=== PATIENT | female | born 1955 | race Caucasian/White ===

== ENCOUNTER 2017-09-24 00:42 | Inpatient (IN) | payer OTHER ==
[2017-09-24] MEDS ORDERED: NITROGLYCERIN SL TABS 0.4 MG TAB SUBLINGUAL PRN ×2 (02:06→09:45)
--- NOTE | 2017-09-24 02:11 | ED ---
SOB HPI - General Chief Complaint: Shortness of Breath Stated Complaint: Dr Martinez Time Seen by Provider: 09/24/17 01:08 Source: patient Mode of arrival: ambulatory Limitations: no limitations - History of Present Illness Initial Comments: this patient is a 62-year-old woman transferred here to have further workup for suspected angina. The patient had gone to outside hospital with complaint that she was having episodes of shortness of breath that were coming by nausea and breaking into a sweat. She states that these were often brought on by exertion like walking short distances from her home. She went to the outside hospital and T inversions were noted on her EKG, compared with the previous MD Complaint: shortness of breath -: week(s) Consistency: intermittent Improves With: oxygen Worsens With: exertion Associated Symptoms: diaphoresis, nausea/vomiting Treatments Prior to Arrival: oxygen, aspirin - Related Data Home Medications Medication Instructions Recorded Confirmed Aspirin [Adult Low Dose Aspirin EC] 81 mg PO DAILY 09/24/17 09/24/17 Carvedilol [Coreg] 6.25 mg PO BID 09/24/17 09/24/17 Diazepam [Valium] 5 mg PO QID PRN 09/24/17 09/24/17 Levothyroxine Sodium [Synthroid] 112 mcg PO DAILY 09/24/17 09/24/17 Lisinopril [Zestril] 5 mg PO DAILY 09/24/17 09/24/17 Simvastatin [Zocor] 20 mg PO HS 09/24/17 09/24/17 metFORMIN HCL [Glucophage] 500 mg PO BID 09/24/17 09/24/17 Allergies Allergy/AdvReac Type Severity Reaction Status Date / Time lincomycin Allergy Swelling Verified 09/24/17 05:14 nickel Allergy Swelling Verified 09/24/17 05:14 Review of Systems ROS Statement: Those systems with pertinent positive or pertinent negative responses have been documented in the HPI. ROS Other: All systems not noted in ROS Statement are negative. Constitutional: Denies: fever, chills, weakness Respiratory: Reports: as per HPI, dyspnea. Denies: cough, wheezes, hemoptysis Cardiovascular: Reports: as per HPI, dyspnea on exertion. Denies: chest pain, palpitations, orthopnea, edema, syncope Gastrointestinal: Reports: as per HPI, nausea. Denies: abdominal pain, vomiting Genitourinary: Denies: dysuria, hematuria Musculoskeletal: Denies: back pain Skin: Denies: rash Neurological: Denies: headache, weakness, numbness Hematological/Lymphatic: Denies: easy bleeding Past Medical History Past Medical History: Coronary Artery Disease (CAD), Diabetes Mellitus, Hyperlipidemia, Hypertension, Seizure Disorder History of Any Multi-Drug Resistant Organisms: None Reported Past Surgical History: Back Surgery, Heart Catheterization Past Psychological History: No Psychological Hx Reported Smoking Status: Former smoker Past Alcohol Use History: None Reported Past Drug Use History: Marijuana - Past Family History Father Family Medical History: Coronary Artery Disease (CAD) Additional Family Medical History / Comment(s): required CABG at age 42 Mother Family Medical History: Diabetes Mellitus General Exam Limitations: no limitations General appearance: alert, in no apparent distress Head exam: Present: atraumatic, normocephalic Eye exam: Present: normal appearance. Absent: scleral icterus, conjunctival injection ENT exam: Present: mucous membranes dry Neck exam: Present: normal inspection, full ROM Respiratory exam: Present: normal lung sounds bilaterally. Absent: respiratory distress, wheezes, rales, rhonchi, stridor, chest wall tenderness, accessory muscle use, decreased breath sounds Cardiovascular Exam: Present: regular rate, normal rhythm, normal heart sounds. Absent: systolic murmur, diastolic murmur, rubs, gallop GI/Abdominal exam: Present: soft. Absent: distended, tenderness, guarding, rebound Extremities exam: Present: normal inspection, normal capillary refill. Absent: pedal edema, calf tenderness Back exam: Present: normal inspection. Absent: CVA tenderness (R), CVA tenderness (L) Neurological exam: Present: alert Skin exam: Present: warm, dry, intact, normal color. Absent: rash Course Vital Signs 09/24/17 09/24/17 09/24/17 00:46 01:50 02:30 Temperature 98 F 97.4 F L Pulse Rate 68 58 L 58 L Respiratory 18 18 18 Rate Blood Pressure 126/57 110/57 133/62 O2 Sat by Pulse 97 100 99 Oximetry Medical Decision Making - Medical Decision Making patient is a 62-year-old woman having episodes concerning for angina. She also does have T inversions on an EKG comparison with previous. She is asymptomatic here, and she has had 2 negative troponins. patient is admitted. did discuss case with the on-call nuisance wildlife specialist, and recommendations incorporated. - Lab Data Lab Results 09/24/17 Range/Units 01:20 Troponin I 0.032 (0.000-0.034) ng/mL - EKG Data -: EKG Interpreted by Me EKG shows normal: sinus rhythm, axis (Normal), intervals (MO interval 166 ms, QRS duration 88 ms, both normal), ST-T waves (There are T inversions in the anterior and lateral leads, which are present on the comparison EKG from the outside hospital) Rate: normal (Rate approximate 67 bpm) Interpretation: other (Prolonged QT at 481 ms) Disposition Clinical Impression: Stable angina Disposition: ADMITTED IP TO THIS HOSP Condition: Serious
[2017-09-24 05:39] VITALS: BMI 18.4
[2017-09-24 07:10] LABS: Glucose,Whole Blood 97 mg/dL (75-99)
[2017-09-24 08:25] LABS: Creatine Kinase MB 0.9 ng/mL (0.0-2.4)
[2017-09-24 08:28] LABS: Troponin I 0.036 ng/mL (0.000-0.034)
[2017-09-24] MEDS ORDERED: DIAZEPAM 5 MG TAB PO PRN (08:54)
[2017-09-24] MEDS ORDERED: ENOXAPARIN 60 MG/0.6 ML SYRINGE SQ SCH (09:00)
[2017-09-24] MEDS ORDERED: ASPIRIN 81 MG PO SCH (09:00)
[2017-09-24] MEDS ORDERED: ALPRAZolam 0.25 MG TAB PO PRN (09:45)
[2017-09-24] MEDS ORDERED: SODIUM CHLORIDE 0.9% 1,000 ML in EMPTY BAG 1 BAG IV ONE (09:45)
[2017-09-24] MEDS ORDERED: ALPRAZolam 0.5 MG TAB PO PRN (09:45)
[2017-09-24] MEDS ORDERED: ASPIRIN 325 MG TAB PO STA (09:49)
[2017-09-24] MEDS ORDERED: ATORVASTATIN 80 MG TAB PO STA (09:49)
--- NOTE | 2017-09-24 10:07 | CONS ---
CONSULTATION HISTORY: Ms. Sanchez is a 62-year-old female who was transferred from [place] for cardiac evaluation. The patient has a known history of coronary artery disease diagnosed by CT angiogram in 2012. At that time, she was followed at [facility]. At the time of her CT angiogram, she was found to have a 25-50% LAD disease, 25-50% proximal RCA, 70% mid RCA. She was treated medically. She also has a history of severe peripheral vascular disease. For the last 2 months, more over the last 2 weeks she has been complaining of progressive dyspnea on exertion, progressive fatigue and diaphoresis. No clear symptoms of chest discomfort. In the emergency room she was noted to have T-wave inversion anteriorly, which is new compared with an EKG that was done a few months ago. She has the progressive fatigue and weight loss. She denies any palpitation or syncope. She has no peripheral edema. No clear PND and no orthopnea. Her left ventricular systolic function by echocardiography has been preserved in the past. Her coronary risk factors are remarkable for smoking which she stopped in February, history of diabetes and hypertension. Her lipid profile is not available to me. REVIEW OF SYSTEMS: RESPIRATORY system: She had dyspnea on exertion. She was told that she has COPD. GI system: She has nausea and vomiting and weight loss. She has what appears to be evidence of ischemic bowel at times. system: No dysuria, hematuria. Nervous system: No stroke. She has been told that she has seizure. MEDICATION: At home includes: Metformin 5 mg twice a day, lisinopril 5 mg daily, levothyroxine, Valium, Coreg 6.5 mg twice a day, and aspirin once a day. PHYSICAL EXAMINATION: She is a 62-year-old female, alert, oriented, in no apparent distress. A blood pressure 120/60 with a heart rate in the 70s. HEAD: Normocephalic. Eyes sclerae anicteric. Neck good upstroke. No bruit. LUNGS: Clear to auscultation. HEART: Regular rate and rhythm S1, S2. No S3 with systolic murmur at the base. No diastolic murmur. ABDOMEN: Soft, nontender. Positive bowel sounds. No organomegaly. Extremities: Decreased distal pulses. No edema. LAB DATA: Lab data revealed a troponin of 0.032 and 0.036. Her renal function in [place] showed a BUN and creatinine 13 and 1.0. Her potassium 3.7. Her EKG shows a sinus mechanism with T-wave inversion in the anterior leads consistent with anterior wall ischemia. IMPRESSION: 1. Non ST-segment elevation myocardial infarction with T-wave inversion anteriorly. 2. History of peripheral vascular disease by CT angiogram in 2012. 3. Severe peripheral disease with bilateral iliac stenosis documented by CT angiogram. 4. History of hypertension. 5. Prior history of smoking. 6. History of diabetes mellitus. 7. Weight loss. RECOMMENDATIONS: Proceed with coronary angiography to assess her status and guide her treatment. The rationale behind the procedures, risks and complications were discussed with the patient who is in full understanding and agreement. Depending on the results of testing, further recommendations will be made. Thank you for this consult. We will follow with you. DEWEY / IJLeigh: [id number] /
[2017-09-24] MEDS: LISINOPRIL 5 MG TAB PO SCH (10:22)
[2017-09-24] MEDS: CARVEDILOL 6.25 MG TAB PO SCH ×2 (10:22→23:11)
[2017-09-24 10:23] LABS: T4, Free (Free Thyroxine) 2.11 ng/dL (0.78-2.19)
[2017-09-24 11:50] LABS: Glucose,Whole Blood 107 mg/dL (75-99)
[2017-09-24] MEDS ORDERED: LIDOCAINE 2% INJ 20 MG/ML (20 ML MDV) ONE (11:53)
[2017-09-24] MEDS ORDERED: SODIUM CHLORIDE 0.9% 500 ML IV ONE (12:00)
[2017-09-24] MEDS: INSULIN ASPART 100 UNIT/ML 1 ML 10 ML VIAL SQ SCH ×3 (12:13→21:06)
[2017-09-24] MEDS ORDERED: diphenhydrAMINE 50 MG/ML 1 ML VIAL ONE (12:18)
[2017-09-24] MEDS ORDERED: fentaNYL (PF) 50 MCG/ML 2 ML AMP ONE (12:18)
[2017-09-24] MEDS ORDERED: VERAPAMIL 2.5 MG/ML 2 ML AMP ONE (12:18)
[2017-09-24] MEDS ORDERED: fentaNYL (PF) 50 MCG/ML 2 ML AMP IV ONE (12:27)
[2017-09-24] MEDS ORDERED: LIDOCAINE 2% INJ 20 MG/ML SQ ONE (12:27)
[2017-09-24] MEDS ORDERED: diphenhydrAMINE 50 MG/ML 1 ML VIAL IVP ONE (12:28)
[2017-09-24] MEDS ORDERED: VERAPAMIL SYRINGE (5 MG/10 ML) INTRAARTER ONE (12:38)
[2017-09-24] MEDS ORDERED: HEPARIN SODIUM 1,000 UN/ML (10ML VL) ONE (12:44)
[2017-09-24] MEDS ORDERED: HEPARIN SODIUM 1,000 UN/ML (10ML VL) IV ONE (12:45)
[2017-09-24] MEDS ORDERED: IODIXANOL 320 MG/ML 100 ML INTRAARTER ONE (12:51)
[2017-09-24] MEDS ORDERED: RX INFO: IV CONTRAST WAS GIVEN 1 EACH MISC MISCELLANE PRN (13:02)
[2017-09-24] MEDS ORDERED: SODIUM CHLORIDE 0.9% 1,000 ML IV SCH (13:15)
--- NOTE | 2017-09-24 13:37 | CC ---
CARDIAC CATHETERIZATION REPORT Mrs. Sanchez 62-year-old female, known history of peripheral disease, history of hypertension, prior history of smoking, history of hyperlipidemia, who presented to the hospital with symptoms of on and off dyspnea and fatigue. She had deep T-wave inversion inferiorly with mild elevation of troponin. In view of that, recommendation made regarding cardiac catheterization. The procedures, risks and complication were discussed with the patient who is in full understanding and agreement. PROCEDURE: Patient was brought to kiln labourer in a fasting semisedated state after receiving fentanyl and Benadryl and achieving moderate conscious sedated state. Using Xylocaine anesthesia and Seldinger technique, a 6-Pakistani sheath was introduced in the left radial artery. Selective right and left coronary angiography performed using 5-Pakistani 4 bend, right and left Raina catheter. Multiple views of the coronary arteries including hemiaxial views were obtained. Following that, 5-Pakistani tight pigtail catheter was introduced into the left ventricle and a 30 degree VOGT view of the left ventricle was obtained. Following that, the catheter and sheaths were removed. Hemostasis was obtained with deployment of a TR band. There was no immediate complication. Patient is returned to room in stable condition. Of note, the patient received 2500 units of intravenous heparin as well as intra-arterial verapamil. FINDINGS: 1. FLUOROSCOPY: There was severe calcification involving all the coronary arteries. 2. LEFT MAIN: This is a large-sized vessel bifurcating left circumflex and left anterior descending artery. Left main coronary artery is without any significant obstructive coronary disease. 3. LEFT ANTERIOR DESCENDING ARTERY: This is a large-sized vessel reaching towards the apex with a wraparound apex segment giving rise to one moderately sized diagonal branch in mid segment. The left anterior descending artery in the mid segment has 20% plaque without any evidence of high-grade stenosis. 4. LEFT CIRCUMFLEX CORONARY ARTERY: This is a nondominant vessel, large in caliber giving rise to a large obtuse marginal branch. Proximal segment of the left circumflex is a 20% to 30% plaque. The rest of the vessel has no high-grade stenosis. 5. RIGHT CORONARY ARTERY: This is a dominant vessel bifurcating distally PDA and posterolateral segment and branches. The mid segment of the right coronary artery has a tubular lesion of about 30% to 40%. The rest of the vessel has no high-grade stenosis. 6. LEFT VENTRICULOGRAM: Left ventriculogram was performed in 30 degree VOGT view and revealed a normal left ventricular size and systolic function. Ejection fraction 60%. There was no significant mitral regurgitation. Significant calcification distal abdominal aorta involving both iliac was noted. 7. HEMODYNAMICS: There was no gradient across the aortic valve. The left ventricular end-diastolic pressure was 8-10 mmHg. CONCLUSION: 1. Calcified coronary arteries. 2. Mild triple-vessel coronary disease. 3. Normal left ventricular size and systolic function. RECOMMENDATION: In view of finding anatomy, I recommend continue medical therapy with aggressive risk modifications being initiated. The patient may have had a ruptured plaque or vasospastic presentation. Those findings and recommendation were discussed with the patient and her family who are in fully understanding and agreement. Duration of the procedure is 28 minutes. MMODL / IJN: [id number] /
[2017-09-24] MEDS: CLOPIDOGREL 75 MG TAB PO SCH (13:49)
[2017-09-24] MEDS: ISOSORBIDE MONONITRATE ER 30 MG TAB.ER.24H PO SCH (13:49)
[2017-09-24 15:17] LABS: Creatine Kinase MB 0.8 ng/mL (0.0-2.4); Troponin I 0.032 ng/mL (0.000-0.034)
--- NOTE | 2017-09-24 16:37 | HP ---
HISTORY AND PHYSICAL SUBJECTIVE: A 62-year-old white female transferred from [place] for cardiac evaluation. She had some blockages in the past in 2013, treated medically. For the last 2 months she has had progressively worse shortness of breath and fatigue. She is brought to the ER due to diaphoresis for no clear etiology. She has new T-wave inversion anteriorly, new from a few months ago on EKG. Progressive fatigue, weight loss. She has risk factors, insulin-dependent diabetes mellitus, hypertension, and unexplained dyspnea with diaphoresis at which time she is going seen by Cardiology and possible sent to the heart nitriles lab technician. PAST MEDICAL HISTORY: Hypertension, possible coronary artery disease, prior history of COPD, nicotine addiction, diabetes mellitus, unexplained weight loss, history of peripheral vascular disease. REVIEW OF SYSTEMS: Fourteen point review of systems negative except for as mentioned in HPI. Labs are reviewed. VITAL SIGNS: Reviewed. CARDIOVASCULAR: S1, S2. LUNGS: Show scattered wheeze. HEMATOLOGY: Negative Homans. ABDOMEN: Soft, nontender. PSYCH: Fair mood and affect. NEUROLOGIC: Alert and oriented x3. ASSESSMENT: 1. Non ST-segment elevated myocardial infarction with elevated troponins with T-wave inversion anteriorly. 2. History of peripheral vascular disease. 3. Hypertension. 4. Nicotine addiction. 5. Diabetes mellitus. 6. Weight loss. Discussed case with Cardiology, possible heart catheterization will be needed. Please see further orders. Medications and labs reviewed. MMODL / IJN: [id number] /
[2017-09-24 16:48] LABS: Glucose,Whole Blood 109 mg/dL (75-99)
[2017-09-24] MEDS ORDERED: metFORMIN 500 MG TAB PO SCH (17:30)
[2017-09-24 18:14] LABS: Hemoglobin A1C 5.7 % (4.0-6.0)
[2017-09-24 21:06] LABS: Glucose,Whole Blood 89 mg/dL (75-99)
[2017-09-25] MEDS: INSULIN ASPART 100 UNIT/ML 1 ML 10 ML VIAL SQ SCH ×2 (06:26→12:01)
[2017-09-25] MEDS ORDERED: LEVOTHYROXINE 112 MCG TAB PO SCH (06:30)
[2017-09-25 06:32] LABS: Glucose,Whole Blood 99 mg/dL (75-99)
[2017-09-25 07:14] LABS: Anion Gap 9 mmol/L; Blood Urea Nitrogen 12 mg/dL (7-17); Calcium 9.6 mg/dL (8.4-10.2); Carbon Dioxide 22 mmol/L (22-30); Chloride 109 mmol/L (98-107); Cholesterol 166 mg/dL (<200); Glucose 102 mg/dL (74-99); HDL Cholesterol 43 mg/dL (40-60); LDL Cholesterol,Calculated 102 mg/dL (0-99); Potassium 4.2 mmol/L (3.5-5.1); Sodium 140 mmol/L (137-145); Triglycerides 106 mg/dL (<150)
[2017-09-25 08:29] VITALS: TEMP 97
[2017-09-25 08:45] LABS: Glucose,Whole Blood 104 mg/dL (75-99)
[2017-09-25] MEDS: LISINOPRIL 5 MG TAB PO SCH (08:45)
[2017-09-25] MEDS: CLOPIDOGREL 75 MG TAB PO SCH (08:45)
[2017-09-25] MEDS: ISOSORBIDE MONONITRATE ER 30 MG TAB.ER.24H PO SCH (08:45)
[2017-09-25] MEDS ORDERED: ASPIRIN 81 MG PO SCH (09:00)
[2017-09-25] MEDS ORDERED: ASPIRIN 325 MG TAB PO SCH (09:00)
[2017-09-25] MEDS ORDERED: ATORVASTATIN 40 MG TAB PO SCH (09:00)
--- NOTE | 2017-09-25 10:27 | ECHOF ---
Referral Reason:cp MEASUREMENTS -------- HEIGHT: 157.5 cm WEIGHT: 45.8 kg BP: 104/53 RVIDd: 2.1 cm (< 3.3) IVSd: 0.6 cm (0.6 - 1.1) LVIDd: 4.1 cm (3.9 - 5.3) LVPWd: 0.7 cm (0.6 - 1.1) IVSs: 1.1 cm LVIDs: 2.2 cm LVPWs: 1.2 cm LA Diam: 2.4 cm (2.7 - 3.8) Ao Diam: 2.6 cm (2.0 - 3.7) AV Cusp: 1.6 cm (1.5 - 2.6) MV EXCURSION: 16.399 mm (> 18.000) MV EF SLOPE: 74 mm/s (70 - 150) EPSS: 1.4 cm MV E Kyle: 0.84 m/s MV DecT: 232 ms MV A Kyle: 1.12 m/s MV E/A Ratio: 0.75 FINDINGS -------- Sinus rhythm. This was a technically good study. The left ventricular size is normal. Left ventricular wall thickness is normal. Overall left vent ricular systolic function is normal with, an EF between 60 - 65 %. The right ventricle is normal in size. The left atrial size is normal. The right atrium is normal in size. There is mild aortic valve sclerosis. The mitral valve leaflets are mildly thickened. Mild mitral annular calcification present. There is trace mitral regurgitation. The tricuspid valve appears structurally normal. Trace/mild (physiologic) pulmonic regurgitation. The aortic root size is normal. Normal inferior vena cava with normal inspiratory collapse consistent with estimated right atrial pre ssure of 5 mmHg. There is no pericardial effusion. CONCLUSIONS -------- 1. Sinus rhythm. 2. This was a technically good study. 3. The left ventricular size is normal. 4. Left ventricular wall thickness is normal. 5. Overall left ventricular systolic function is normal with, an EF between 60 - 65 %. 6. The right ventricle is normal in size. 7. The left atrial size is normal. 8. The right atrium is normal in size. 9. There is mild aortic valve sclerosis. 10. The mitral valve leaflets are mildly thickened. 11. Mild mitral annular calcification present. 12. There is trace mitral regurgitation. 13. The tricuspid valve appears structurally normal. 14. Trace/mild (physiologic) pulmonic regurgitation. 15. The aortic root size is normal. 16. Normal inferior vena cava with normal inspiratory collapse consistent with estimated right atrial pressure of 5 mmHg. 17. There is no pericardial effusion. STUDENT CAREER DEVELOPMENT SPECIALIST: Gayathri Miller RDCS
[2017-09-25 11:02] VITALS: BP 115/66; PULSE 73; RESP 16
--- NOTE | 2017-09-25 11:13 | PN ---
PROGRESS NOTE Mrs. Sanchez is a 62-year-old female who presented with symptoms of dyspnea, progressive fatigue, had deep T-wave inversion anteriorly with minimal troponin elevation, underwent cardiac catheterization that revealed mild to moderate triple-vessel disease with normal left ventricular size and systolic function. This morning, she felt dizzy when she was standing with a drop in the blood pressure. On the monitor she is in sinus mechanism with no evidence of tachy or isis arrhythmia. She continues to be on Coreg 6.25 mg twice a day, aspirin once a day, Lipitor 40 mg daily, Plavix 75 mg daily, isosorbide mononitrate 30 mg daily, lisinopril 5 mg daily, and levothyroxine. PHYSICAL EXAMINATION: Blood pressure 130/60 with the heart rate in the 70s. LUNGS: Clear. HEART: Regular rate and rhythm. S1, S2. No S3. No rub. ABDOMEN: Soft, nontender. EXTREMITIES: No edema. Left radial pulse is intact. EKG revealed deep T-wave inversion anteriorly with no change. LAB DATA: Lab data otherwise showed that her troponin went to 0.036 and subsequently down to 0.032. IMPRESSION: 1. Significant T-wave inversion with no evidence of significant obstructive coronary artery disease and a normal left ventricular systolic function, which goes against Takotsubo syndrome. The possibility of vasospastic disease or ruptured plaque cannot be excluded, although not typical. 2. Episode of hypotension, orthostatic. 3. History of hypertension in the past. 4. Diabetes mellitus. RECOMMENDATION: From the cardiac standpoint, we will cut down the dose of her Coreg. Continue the rest of medical regimen. She should be able to be restarted on metformin tomorrow. I will expect she should be able to be discharged home this afternoon and followed as an outpatient. I have discussed with the patient and her family those findings. MMODL / IJN: [id number] /
[2017-09-25 11:25] LABS: Glucose,Whole Blood 119 mg/dL (75-99)
[2017-09-25] MEDS ORDERED: CARVEDILOL 3.125 MG TAB PO SCH (17:30)
== END 2017-09-25 17:04 | disposition home or self-care (01) | DRG 282 ==
LOC: EC 00:42 → 3SUR 02:06 → 6SEL 16:48 → OBSVTOIN 09-25 10:48
PROVIDERS: ADMIT Family Medicine; ATTEND Family Medicine
PROC: B2111ZZ Fluoroscopy of Multiple Coronary Arteries using Low Osmolar Contrast (ICD-10-PCS; principal; 2017-09-25)
PROC: 4A023N7 Measurement of Cardiac Sampling and Pressure, Left Heart, Percutaneous Approach (ICD-10-PCS; 2017-09-25)
DX: I21.4 Non-ST elevation (NSTEMI) myocardial infarction (principal); E11.51 Type 2 diabetes mellitus with diabetic peripheral angiopathy without gangrene; E78.5 Hyperlipidemia, unspecified; G40.909 Epilepsy, unspecified, not intractable, without status epilepticus; F17.200 Nicotine dependence, unspecified, uncomplicated; I25.118 Atherosclerotic heart disease of native coronary artery with other forms of angina pectoris; R63.4 Abnormal weight loss; I95.1 Orthostatic hypotension; I10 Essential (primary) hypertension; Z79.02 Long term (current) use of antithrombotics/antiplatelets; Z79.82 Long term (current) use of aspirin; Z79.4 Long term (current) use of insulin; Z79.899 Other long term (current) drug therapy; Z83.3 Family history of diabetes mellitus; Z82.49 Family history of ischemic heart disease and other diseases of the circulatory system; Z88.1 Allergy status to other antibiotic agents; Z91.048 Other nonmedicinal substance allergy status
CPT/HCPCS: 36415; 80048; 80061; 82550; 82553; 83036; 84439; 84443; 84484; 93005; 93306; 93458; 99285

== ENCOUNTER 2019-11-04 06:31 | Day surgery (SDC) | payer OTHER ==
[2019-10-30 14:38] VITALS: BMI 23.8
[~2019-11-04 06:31] MED LIST: ALPRAZolam 0.25 MG TAB PO PRN; SODIUM CHLORIDE 0.9% 1,000 ML in EMPTY BAG 1 BAG IV ONE
[2019-11-04] MEDS ORDERED: ASPIRIN 325 MG TAB PO ONE (07:00)
[2019-11-04 07:02] LABS: Glucose,Whole Blood 140 mg/dL (75-99)
[2019-11-04 07:09] VITALS: RESP 16; TEMP 98.2
[2019-11-04 07:17] LABS: Calcium 9.5 mg/dL (8.4-10.2)
[2019-11-04 07:21] LABS: Potassium 5.9 mmol/L (3.5-5.1)
[2019-11-04 07:32] LABS: Basophils # (A) 0.1 k/uL (0-0.2); Basophils % (A) 1 %; Eosinophils # (A) 0.6 k/uL (0-0.7); Eosinophils % (A) 5 %; HCT 37.7 % (34.0-46.0); HGB 12.4 gm/dL (11.4-16.0); Lymphocytes # (A) 3.2 k/uL (1.0-4.8); Lymphocytes % (A) 26 %; MCH 27.8 pg (25.0-35.0); MCHC 32.9 g/dL (31.0-37.0); MCV 84.5 fL (80.0-100.0); Mean Platelet Volume 8.3; Monocytes # (A) 0.5 k/uL (0-1.0); Monocytes % (A) 4 %; Neutrophils # (A) 7.8 k/uL (1.3-7.7); Neutrophils % (A) 62 %; Platelet Count 354 k/uL (150-450); RBC 4.46 m/uL (3.80-5.40); RDW 12.2 % (11.5-15.5); WBC 12.5 k/uL (3.8-10.6)
[2019-11-04] MEDS ORDERED: MIDAZOLAM 2 MG/2 ML VIAL IV ONE (07:45)
[2019-11-04] MEDS ORDERED: LIDOCAINE 1% INJ 10MG/ML (20 ML MDV) SQ ONE (07:50)
[2019-11-04] MEDS ORDERED: fentaNYL (PF) 50 MCG/ML 2 ML AMP IV ONE (07:54)
[2019-11-04] MEDS ORDERED: IOPAMIDOL-250 100ML BTL INTRAARTER ONE (08:01)
[2019-11-04] MEDS ORDERED: SODIUM CHLORIDE 0.9% 1,000 ML IV SCH (08:15)
--- NOTE | 2019-11-04 08:26 | LTR ---
DATE OF SERVICE: 11/04/2019 RE: Daniel Natalie Dear Dr. Roque; Ms. Kayleen Sanchez was seen recently by Dr. Bach in the office and he diagnosed her with right leg intermittent claudication, and because of that, an angiogram was performed. I did perform the angiogram on her today and that revealed critical disease involving the right external iliac artery. Ms. Sanchez will be scheduled to undergo balloon angioplasty and stenting of the right external iliac artery. I want to thank you for allowing us to participate in her care and please do not hesitate to call if you have any question or concern. Sincerely, Thaddeus Cuenca MD MMNIKIAL / DAVINN: [id number] /
--- NOTE | 2019-11-04 08:26 | IR ---
Fluoroscopy HISTORY: Pain in leg 120 seconds fluoroscopy time supplied to the referring clinician. 126 intraoperative C-arm images do cument the procedure. See dictated report from cardiology.
--- NOTE | 2019-11-04 08:32 | AN ---
ANGIOGRAPHY REPORT PERFORMING PHYSICIAN: Thaddeus Cuenca MD. PROCEDURE PERFORMED: 1. An abdominal aortogram. 2. Bilateral lower extremities runoff. INDICATION: This is a 64-year-old female patient who sees Dr. Bach in the office as an outpatient with history of hypertension and dyslipidemia who was experiencing bilateral lower extremities intermittent claudication, was scheduled to undergo an aortogram with runoff. APPROACH: Right common femoral artery. COMPLICATION: None. LEVEL OF SEDATION: Moderate with sedation length of 16 minutes. After obtaining an informed consent, the patient was brought to the cardiac laborer road. The right common femoral artery was cannulated using micropuncture technique and the micropuncture wire passed easily, then I placed a 5-Welsh sheath at the right common femoral artery. After that, I did an abdominal aortogram and bilateral lower extremities runoff using 5-Welsh pigtail catheter which was initially placed at the level of the renal arteries then it was pulled into above the bifurcation of the aorta to right and left common iliac arteries. The procedure was completed without any complication. SELECTIVE PERIPHERAL ANGIOGRAM: 1. The aorta appeared to be angiographically normal besides being calcified. 2. Common iliac arteries, the right common iliac artery appeared to have intermediate disease only and the left common iliac artery appeared to have intermediate disease only. 3. Internal iliac arteries both are patent. 4. External iliac arteries the right external iliac artery appeared to have a critical lesion and the left external iliac artery appeared to be angiographically normal. 5. Common femoral artery. The right common femoral artery has mild to moderate disease only and the left common femoral artery appeared to be angiographically normal. 6. Profunda both profunda are patent. Number SFA: Both SFA are patent. 7. Popliteal: Both popliteal are patent. 8. Below the knee, there are 3 vessel runoff below the knee bilaterally. CONCLUSION: 1. 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 2. Intermediate disease involving the left external iliac artery. 3. Postprocedure management #1 PNEUMATIC TUBE REPAIRER of the right external iliac artery. Indication please cc a copy to Dr. PALOMO / BRYNN: [id number] /
[2019-11-04 13:22] VITALS: BP 120/60; PULSE 63
== END 2019-11-04 13:45 | disposition home or self-care (01) ==
LOC: CATHCVL 06:31
PROVIDERS: ATTEND Internal Medicine Interventional Cardiology
DX: E11.51 Type 2 diabetes mellitus with diabetic peripheral angiopathy without gangrene (principal); I70.213 Atherosclerosis of native arteries of extremities with intermittent claudication, bilateral legs; I10 Essential (primary) hypertension; E78.5 Hyperlipidemia, unspecified; I25.10 Atherosclerotic heart disease of native coronary artery without angina pectoris; E07.9 Disorder of thyroid, unspecified; E78.2 Mixed hyperlipidemia; Z79.82 Long term (current) use of aspirin; Z79.899 Other long term (current) drug therapy; Z79.890 Hormone replacement therapy; Z79.84 Long term (current) use of oral hypoglycemic drugs; Z87.891 Personal history of nicotine dependence; Z82.49 Family history of ischemic heart disease and other diseases of the circulatory system
CPT/HCPCS: 36200; 75625; 75716; 80048; 85025; C1769 ×5; C1894; J2250; J2001; J3010; Q9966

== ENCOUNTER → 2020-01-27 | Outpatient (CLI) | payer OTHER | END | disposition home or self-care (01) | LOC: LABWHC1 09:56 | PROVIDERS: ATTEND Internal Medicine Interventional Cardiology | DX: U07.1 COVID-19 (principal) | CPT/HCPCS: 87635 ==

== ENCOUNTER → 2020-01-29 | Day surgery (SDC) | payer OTHER ==
[2020-01-27 14:37] VITALS: BMI 23.3
== END ==
LOC: CATHCVL 07:35
PROVIDERS: ATTEND Internal Medicine Interventional Cardiology
DX: I73.9 Peripheral vascular disease, unspecified (principal); Z53.9 Procedure and treatment not carried out, unspecified reason

== ENCOUNTER 2020-02-12 08:30 | Day surgery (SDC) | payer OTHER ==
[2020-02-11 08:18] VITALS: BMI 23.8
[~2020-02-12 08:30] MED LIST changes: +ASPIRIN 325 MG TAB PO STA
[2020-02-12 08:57] LABS: Glucose,Whole Blood 136 mg/dL (75-99)
[2020-02-12 10:57] LABS: Basophils # (A) 0.1 k/uL (0-0.2); Basophils % (A) 1 %; Eosinophils # (A) 0.6 k/uL (0-0.7); Eosinophils % (A) 5 %; HCT 37.7 % (34.0-46.0); HGB 12.2 gm/dL (11.4-16.0); Lymphocytes # (A) 2.5 k/uL (1.0-4.8); Lymphocytes % (A) 24 %; MCH 28.6 pg (25.0-35.0); MCHC 32.3 g/dL (31.0-37.0); MCV 88.5 fL (80.0-100.0); Mean Platelet Volume 8.3; Monocytes # (A) 0.4 k/uL (0-1.0); Monocytes % (A) 4 %; Neutrophils # (A) 6.6 k/uL (1.3-7.7); Neutrophils % (A) 65 %; Platelet Count 303 k/uL (150-450); RBC 4.26 m/uL (3.80-5.40); RDW 12.4 % (11.5-15.5); WBC 10.2 k/uL (3.8-10.6)
[2020-02-12 11:01] LABS: Calcium 9.9 mg/dL (8.4-10.2); Potassium 4.3 mmol/L (3.5-5.1)
[2020-02-12] MEDS ORDERED: MIDAZOLAM 2 MG/2 ML VIAL IV ONE ×3 (11:04→12:30)
[2020-02-12] MEDS: fentaNYL (PF) 50 MCG/ML 2 ML AMP IV ONE ×2 (11:04→11:20)
[2020-02-12] MEDS ORDERED: LIDOCAINE 1% INJ 10MG/ML (20 ML MDV) SQ ONE (11:16)
[2020-02-12] MEDS ORDERED: HEPARIN SODIUM 1,000 UN/ML (10ML VL) IV ONE (11:28)
[2020-02-12] MEDS ORDERED: IOPAMIDOL-250 100ML BTL INTRAARTER ONE (12:57)
[2020-02-12] MEDS ORDERED: CLOPIDOGREL 75 MG TAB PO ONE (12:58)
[2020-02-12] MEDS ORDERED: HYDROmorphone 1 MG/ML 1 ML SYRINGE IVP ONE (13:05)
[2020-02-12] MEDS ORDERED: NITROGLYCERIN SL TABS 0.4 MG TAB SUBLINGUAL PRN (13:05)
[2020-02-12] MEDS ORDERED: DIAZEPAM 5 MG TAB PO PRN (13:05)
[2020-02-12] MEDS ORDERED: SODIUM CHLORIDE 0.9% 1,000 ML in EMPTY BAG 1 BAG IV SCH (13:15)
--- NOTE | 2020-02-12 13:34 | IR ---
EXAMINATION TYPE: IR ship's captain iliac DATE OF EXAM: 02/12/2020 COMPARISON: NONE HISTORY: Fluoroscopy time. Fluoroscopy was provided to the referring clinician. 26.5 minutes of fluoroscopy provided.
[2020-02-12] MEDS: amLODIPine 5 MG TAB PO SCH (14:29)
[2020-02-12] MEDS ORDERED: HYDROmorphone 0.5 MG/0.5 ML SYRINGE IVP STA (15:01)
[2020-02-12] MEDS ORDERED: ATROPINE SULFATE 0.1 MG/ML 10ML SYRINGE ONE (15:22)
--- NOTE | 2020-02-12 16:04 | AN ---
ANGIOGRAPHY REPORT PERCUTANEOUS PERIPHERAL INTERVENTION: DATE OF SERVICE: 02/12/2020 PERFORMING PHYSICIAN: Thaddeus Cuenca MD. PROCEDURE PERFORMED: 1. Successful stenting of the right external iliac artery using 7.0 x 80 mm Zilver PTX drug-coated stent with an excellent angiographic results. 2. Successful stenting of the right common iliac artery using 8.0 x 57 Visi-Pro balloon expandable stent with an excellent angiographic results. 3. Intravascular ultrasound IVUS of the right external and right common iliac artery. 4. Gradient measurement across the right external and right common iliac artery. 5. A selective angiogram of the right external and right common iliac artery. INDICATION: This is a 64-year-old female patient with hypertension and dyslipidemia who was experiencing bilateral lower extremities intermittent claudication. The patient sees Dr. Bach in the office on a regular basis. She underwent an angiogram which revealed severe aortoiliac bilaterally and she was brought today to undergo an intervention on the right iliac. APPROACH: Right and left common femoral artery. COMPLICATION: None. LEVEL OF SEDATION: Moderate with sedation length of 105 minutes. PROCEDURE DESCRIPTION: After obtaining an informed consent, the patient was brought to the cardiac laboratory supervisor. The left common femoral artery was cannulated using micropuncture technique, the micropuncture wire passed easily, then I placed 70 cm 6-Armenian Raabe sheath. I did select the right SFA using 0.035 stiff Glidewire with the backup support of 5-Armenian Rim catheter. Attempting advancing the Raabe sheath over the stiff glide and rim catheter was unsuccessful. Because of that, I decided to change the Raabe sheath into an Wilfred sheath. With Wilfred sheath, I was able to get the sheath up and over with the backup support of multipurpose catheter as a dilator of the sheath. Subsequently, I did anticoagulation with heparin with continuous ACT monitoring throughout the procedure. The patient given a total of 6000 of heparin at the beginning of the procedure with continuous ACT monitoring throughout the procedure. Subsequently, I did gradient measurement across the right common and right external iliac artery because the lesion was not looking tight. The gradient measurement came into be at 15 mmHg. The gradient came into be about more than 50 mmHg. Intravascular ultrasound was performed and revealed diameter of the right external at 6 mm and the right common at 8 mm balloon angioplasty was performed initially using 4 mm balloon. Subsequently I did deploy in the right external, I did self expandable stent was 7 x 80 mm Zilver PTX and for the right common. I did Visi-Pro balloon expandable which was 8 x 57 mm. I post dilated both the stents using 6 mm balloon. Final angiogram showed excellent angiographic results and the procedure was completed without any complication. After that, I did exchange my long sheath into short sheath before I did selective left common femoral artery angiogram. POSTPROCEDURE MANAGEMENT: 1. Dual anti-platelet therapy. 2. Risk factors modifications. 3. Follow up with the patient. MMODL / IJN: [id number] /
[2020-02-12 16:55] LABS: Glucose,Whole Blood 105 mg/dL (75-99)
[2020-02-12 20:43] LABS: Glucose,Whole Blood 126 mg/dL (75-99)
[2020-02-12] MEDS ORDERED: ATORVASTATIN 10 MG TAB PO SCH (21:00)
[2020-02-12] MEDS: ASPIRIN 81 MG PO SCH (21:35)
[2020-02-12] MEDS: CARVEDILOL 3.125 MG TAB PO SCH (21:35)
[2020-02-12] MEDS: ISOSORBIDE MONONITRATE ER 30 MG TAB.ER.24H PO SCH (21:35)
[2020-02-13 06:09] LABS: Glucose,Whole Blood 117 mg/dL (75-99)
[2020-02-13 07:44] VITALS: BP 128/54; PULSE 81; RESP 16; TEMP 98.7
[2020-02-13] MEDS: amLODIPine 5 MG TAB PO SCH (08:30)
[2020-02-13] MEDS: ASPIRIN 81 MG PO SCH (08:31)
[2020-02-13] MEDS: CARVEDILOL 3.125 MG TAB PO SCH (08:31)
[2020-02-13] MEDS: ISOSORBIDE MONONITRATE ER 30 MG TAB.ER.24H PO SCH (08:31)
[2020-02-13] MEDS ORDERED: MAGNESIUM TOPICAL SCH (09:00)
[2020-02-13] MEDS ORDERED: ASCORBIC ACID 500 MG TAB PO SCH (09:00)
[2020-02-13] MEDS ORDERED: LEVOTHYROXINE 88 MCG TAB PO SCH (09:00)
[2020-02-13] MEDS ORDERED: CLOPIDOGREL 75 MG TAB PO SCH (09:00)
--- NOTE | 2020-02-13 10:24 | P.PN ---
Subjective Progress Note Date: 02/13/20 Discharge note This is a 64-year-old female patient with history of hypertension, hyperlipidemia, prior history of smoking, who was experiencing symptoms of bilateral lower extremity intermittent claudication. She follows with Dr. Linda in the office on a regular basis. She underwent angiogram which revealed severe aortoiliac disease bilaterally and she was brought to the hospital yesterday where she underwent successful stenting of the right external, right common, iliac artery by Dr. Mcmanus. She was seen and examined this morning, overall doing well. Blood pressure 128/54, heart rate in the 80s, 98% on room air. Objective - Vital Signs Vital signs: Vital Signs Temp 98.7 F 02/13/20 07:43 Pulse 81 02/13/20 08:00 Resp 16 02/13/20 08:00 BP 128/54 02/13/20 07:43 Pulse Ox 98 02/13/20 07:43 Intake & Output 02/12/20 02/13/20 02/13/20 18:59 06:59 18:59 Intake Total 570 540 Balance 570 540 Weight 58.967 kg 58.1 kg Intake: IV 450 Oral 120 540 Other: # Voids 0 1 - Exam PHYSICAL EXAMINATION: GENERAL:64-year-old female in no acute distress at the time of my examination HEENT: Head is atraumatic, normocephalic. Pupils equal, round. Sclera anicteric. Conjunctiva are clear. Mucous membranes of the mouth are moist. Neck is supple. There is no elevated jugular venous pressure.no carotid bruit is heard. HEART EXAMINATION: [Heart S1, S2 normal. No murmur or gallop heard.] CHEST EXAMINATION:[ Lungs are clear to auscultation and precussion. No chest wall tenderness is noted on palpation or with deep breathing.] ABDOMEN: [ Soft, nontender. Bowel sounds are heard. No organomegaly noted]. EXTREMITIES:[ 1+ peripheral pulses with no evidence of peripheral edema and no calf tenderness noted].left groin soft, no evidence of any hematoma.mild ecchymosis noted NEUROLOGIC [patient is awake, alert and oriented 3.] . - Labs CBC & Chem 7: 02/12/20 09:30 02/13/20 06:46 Labs: Abnormal Lab Results - Last 24 Hours (Table) 02/12/20 02/12/2002/11/20 Range/Units 09:30 16:45 20:34 Glucose 134 H (74-99) mg/dL POC Glucose (mg/dL) 105 H 126 H (75-99) mg/dL 02/13/20 Range/Units 06:08 Glucose (74-99) mg/dL POC Glucose (mg/dL) 117 H (75-99) mg/dL Assessment and Plan Plan: Assessment and plan #1 status post successful stenting of the right external and right common iliac artery #2 intermittent claudication #3 hypertension #4 hyperlipidemia #5 prior nicotine dependence Plan Patient may be discharged home today. Follow-up appointment with Dr. Bach in the office in one week.discharge medications include Norvasc 5 mg daily, Ecotrin 81 mg daily, Lipitor 10 mg daily, Coreg 3.125 mg twice a day, Plavix 75 mg daily, Imdur 30 mg daily, Synthroid. DNP note has been reviewed, I agree with a documented findings and plan of care. Patient was seen and examined.
== END 2020-02-13 11:26 | disposition home or self-care (01) ==
LOC: CATHCVL 08:30 → 3SCARD 13:14 → CATHCVL 02-13 11:26
PROVIDERS: ATTEND Internal Medicine Interventional Cardiology
DX: I77.1 Stricture of artery (principal); I73.9 Peripheral vascular disease, unspecified; I10 Essential (primary) hypertension; E78.5 Hyperlipidemia, unspecified; E07.9 Disorder of thyroid, unspecified; Z87.891 Personal history of nicotine dependence; Z79.82 Long term (current) use of aspirin; Z79.02 Long term (current) use of antithrombotics/antiplatelets; Z79.890 Hormone replacement therapy; Z79.899 Other long term (current) drug therapy; Z88.1 Allergy status to other antibiotic agents; Z82.49 Family history of ischemic heart disease and other diseases of the circulatory system
CPT/HCPCS: 37221; 37222; 37252; 80048; 82565; 85025; C1894 ×2; C1769 ×4; C1725 ×2; C1753; C1876; C1874; U0003; J2250; J2001; J3010; J1644; J1170 ×2; Q9966

== ENCOUNTER → 2022-12-28 | Outpatient (CLI) | payer OTHER ==
--- NOTE | 2023-01-03 15:15 | MR ---
EXAMINATION TYPE: MR brain wo con DATE OF EXAM: 12/28/2022 COMPARISON: Outside CT one day earlier HISTORY: Abnormal [facility] TECHNIQUE: Multiplanar, multisequence imaging of the brain and brainstem is performed without IV cont rast. FINDINGS: Diffusion weighted images demonstrate no evidence of a recent infarct or other diffusion abnormality. There is mild ventricular and sulcal prominence. There are a few scattered small to tiny foci of T2 h yperintensity throughout the white matter bilaterally. Approximately 5-10 scattered lesions are seen. Midline structures demonstrate normal morphology. The craniocervical junction appears within normal limits. Normal vascular flow voids are present. The visualized sinuses are clear and the globes are i ntact. IMPRESSION: No MRI evidence for a recent infarct. Mild diffuse cerebral atrophy and chronic small ves adelia ischemic change is present.
== END | disposition home or self-care (01) ==
LOC: RADMRIMAIN 20:00
PROVIDERS: ATTEND Nurse Practitioner Adult Health
DX: G31.9 Degenerative disease of nervous system, unspecified (principal); I67.82 Cerebral ischemia; R93.0 Abnormal findings on diagnostic imaging of skull and head, not elsewhere classified
CPT/HCPCS: 70551